=== PATIENT | male | born 1945 | race Caucasian/White ===

== ENCOUNTER 2021-01-12 08:33 | Outpatient (CLI) | payer MEDICARE, BC ==
[~2021-01-12] VITALS: Ht 185.4 cm; Wt 61.7 kg
[2021-01-12] MEDS ORDERED: albuterol 2.5 MG/3 ML nebule NEB ONE (10:05)
== END 2021-01-12 23:59 | disposition home or self-care (01) ==
LOC: RT 08:33
PROVIDERS: ATTEND Internal Medicine
DX: R94.2 Abnormal results of pulmonary function studies (principal)
CPT/HCPCS: 94010